=== PATIENT | male | born 1975 | race African-American/Black ===

== ENCOUNTER 2020-03-18 13:52 | Emergency (ER) | payer SELFPAY ==
[~2020-03-18] VITALS: Ht 170 cm; Wt 79.4 kg
[2020-03-18] MEDS ORDERED: NS IV 1000 ML 1,000 ML IV SCH (14:30)
[2020-03-18 14:33] LABS: BASOPHILS # (AUTO) 0.1 10^3/uL (0.0-0.1); BASOPHILS % (AUTO) 1 % (0-10); EOSINOPHILS # (AUTO) 0.1 10^3/uL (0.0-0.3); EOSINOPHILS % (AUTO) 3 % (0-10); HEMATOCRIT 38 % (40-54); HEMOGLOBIN 13.1 G/DL (13.3-17.7); LYMPHOCYTES # (AUTO) 1.4 X 10^3 (1.0-4.0); LYMPHOCYTES % (AUTO) 41 % (12-44); MEAN CORPUSCULAR HEMOGLOBIN 34 PG (25-34); MEAN CORPUSCULAR HGB CONC 35 G/DL (32-36); MEAN CORPUSCULAR VOLUME 98 FL (80-99); MEAN PLATELET VOLUME 9.4 FL (7.4-10.4); MONOCYTES # (AUTO) 0.4 X 10^3 (0.0-1.0); MONOCYTES % (AUTO) 11 % (0-12); NEUTROPHILS # (AUTO) 1.6 X 10^3 (1.8-7.8); NEUTROPHILS % (AUTO) 44 % (42-75); PLATELET COUNT 184 10^3/uL (130-400); RED CELL DISTRIBUTION WIDTH 13.2 % (10.0-14.5); WHITE BLOOD COUNT 3.5 10^3/uL (4.3-11.0)
[2020-03-18 14:36] LABS: ALBUMIN 3.5 GM/DL (3.2-4.5)
[2020-03-18 14:37] LABS: CHLORIDE 110 MMOL/L (98-107); POTASSIUM 3.7 MMOL/L (3.6-5.0); SODIUM 143 MMOL/L (135-145)
[2020-03-18 14:38] LABS: CALCIUM 8.1 MG/DL (8.5-10.1)
[2020-03-18 14:39] LABS: GLUCOSE 97 MG/DL (70-105); TOTAL PROTEIN 6.9 GM/DL (6.4-8.2)
[2020-03-18 14:40] LABS: CARBON DIOXIDE 23 MMOL/L (21-32)
[2020-03-18 14:41] LABS: BILIRUBIN,TOTAL 0.4 MG/DL (0.1-1.0)
--- NOTE | 2020-03-18 14:41 | ED General ---
General Chief Complaint: Exposure Stated Complaint: HEAT EXHAUSTION Nursing Triage Note: PT REPORTS CALLING EMS FOR HIM AND HIS FRIEND. HIS FRIEND BEGAN TO SEE MULTIPLE THINGS SO HE CALLED EMS. PT REPORTS THEY ARE VERY HOT AND HAVE BEEN WALKING FROM [place] TO FOR WORK. THEY HAVE BEEN WALKING FOR SEVERAL DAYS. Nursing Sepsis Screen: No Definite Risk Source of Information: Patient Exam Limitations: No Limitations History of Present Illness Date Seen by Provider: Mar 18, 2020 Time Seen by Provider: 14:39 Initial Comments To ER by EMS with reports of heat-related illness while walking he got dizzy and had general malaise. The gentleman with whom he is traveling by foot to [place] also wants to be checked out for heat related illness. Theyd both like a sandwich tray. Timing/Duration: 1-2 Days Severity: Moderate Associated Systoms: Denies Symptoms Allergies and Home Medications Allergies Coded Allergies: No Known Drug Allergies (Unverified , 03/18/20) Patient Home Medication List Home Medication List Reviewed: Yes Review of Systems Review of Systems Constitutional: see HPI EENTM: see HPI Respiratory: no symptoms reported Cardiovascular: no symptoms reported Genitourinary: no symptoms reported Musculoskeletal: no symptoms reported Skin: no symptoms reported Psychiatric/Neurological: No Symptoms Reported Hematologic/Lymphatic: No Symptoms Reported Past Cupjofv-Nvlmdn-Gywqqy Hx Patient Social History Alcohol Use: Regular Use Recreational Drug Use: No Smoking Status: Never a Smoker Recent Foreign Travel: No Contact w/Someone Who Travel: No Recent Infectious Disease Expo: No Recent Hopitalizations: No Seasonal Allergies Seasonal Allergies: No Past Medical History Surgeries: Yes (TBI WITH UNKNOWN SX) Respiratory: No Cardiac: No Neurological: Yes Traumatic Brain Injury Genitourinary: No Gastrointestinal: No Musculoskeletal: No Endocrine: No HEENT: No Cancer: No Psychosocial: No Blood Disorders: No Physical Exam Vital Signs Vital Signs - First Documented 03/18/20 13:52 Temp 36.8 Pulse 67 Resp 16 B/P (MAP) 108/78 (88) Pulse Ox 97 Capillary Refill : Less Than 3 Seconds Height, Weight, BMI Height: '" Weight: lbs. oz. kg; 27.00 BMI Method: General Appearance: No Apparent Distress, WD/WN Eyes: Bilateral Eye Normal Inspection, Bilateral Eye PERRL, Bilateral Eye EOMI Neck: Full Range of Motion, Normal Inspection Respiratory: Lungs Clear, Normal Breath Sounds, No Accessory Muscle Use, No Respiratory Distress Cardiovascular: Regular Rate, Rhythm Gastrointestinal: Non Tender, Soft Extremity: Normal Capillary Refill, Normal Inspection Neurologic/Psychiatric: Alert, Oriented x3 Skin: Normal Color, Warm/Dry Progress/Results/Core Measures Suspected Sepsis Recent Fever Within 48 Hours: No Infection Criteria Present: None New/Unexplained Altered Menta: No Sepsis Screen: No Definite Risk SIRS Temperature: Pulse: 67 Respiratory Rate: 16 Laboratory Tests 03/18/20 14:00: White Blood Count 3.5L Blood Pressure 108 /78 Mean: 88 Laboratory Tests 03/18/20 14:00: Creatinine 0.78, Platelet Count 184, Total Bilirubin 0.4 Results/Orders Lab Results Laboratory Tests Test 03/18/20 14:00 Range/Units White Blood Count 3.5 L 4.3-11.0 10^3/uL Red Blood Count 3.88 L 4.35-5.85 10^6/uL Hemoglobin 13.1 L 13.3-17.7 G/DL Hematocrit 38 L 40-54 % Mean Corpuscular Volume 98 80-99 FL Mean Corpuscular Hemoglobin 34 25-34 PG Mean Corpuscular Hemoglobin Concent 35 32-36 G/DL Red Cell Distribution Width 13.2 10.0-14.5 % Platelet Count 184 130-400 10^3/uL Mean Platelet Volume 9.4 7.4-10.4 FL Neutrophils (%) (Auto) 44 42-75 % Lymphocytes (%) (Auto) 41 12-44 % Monocytes (%) (Auto) 11 0-12 % Eosinophils (%) (Auto) 3 0-10 % Basophils (%) (Auto) 1 0-10 % Neutrophils # (Auto) 1.6 L 1.8-7.8 X 10^3 Lymphocytes # (Auto) 1.4 1.0-4.0 X 10^3 Monocytes # (Auto) 0.4 0.0-1.0 X 10^3 Eosinophils # (Auto) 0.1 0.0-0.3 10^3/uL Basophils # (Auto) 0.1 0.0-0.1 10^3/uL Sodium Level 143 135-145 MMOL/L Potassium Level 3.7 3.6-5.0 MMOL/L Chloride Level 110 H 98-107 MMOL/L Carbon Dioxide Level 23 21-32 MMOL/L Anion Gap 10 5-14 MMOL/L Blood Urea Nitrogen 5 L 7-18 MG/DL Creatinine 0.78 0.60-1.30 MG/DL Estimat Glomerular Filtration Rate > 60 BUN/Creatinine Ratio 6 Glucose Level 97 70-105 MG/DL Calcium Level 8.1 L 8.5-10.1 MG/DL Corrected Calcium 8.5 8.5-10.1 MG/DL Total Bilirubin 0.4 0.1-1.0 MG/DL Aspartate Amino Transf (AST/SGOT) 105 H 5-34 U/L Alanine Aminotransferase (ALT/SGPT) 97 H 0-55 U/L Alkaline Phosphatase 104 40-136 U/L Total Protein 6.9 6.4-8.2 GM/DL Albumin 3.5 3.2-4.5 GM/DL Serum Alcohol 316 *H <10 MG/DL My Orders Orders - MATT CIFUENTES APRN Cbc With Automated Diff (03/18/20 14:27) Comprehensive Metabolic Panel (03/18/20 14:27) Alcohol (03/18/20 14:27) Ua Culture If Indicated (03/18/20 14:27) Drug Screen Stat (Urine) (03/18/20 14:27) Ns Iv 1000 Ml (Sodium Chloride 0.9%) (03/18/20 14:30) General/Regular (03/18/20 Lunch) Vital Signs/I&O 03/18/20 13:52 Temp 36.8 Pulse 67 Resp 16 B/P (MAP) 108/78 (88) Pulse Ox 97 Capillary Refill : Less Than 3 Seconds Blood Pressure Mean: 88 Departure Impression Primary Impression: Heat exhaustion Additional Impression: Alcohol abuse Disposition: 01 HOME, SELF-CARE Condition: Stable Departure-Patient Inst. Decision time for Depature: 14:41 Patient Instructions: Heat Exhaustion and Heat Stroke (DC) MATT CIFUENTES APRN Mar 18, 2020 14:41
[2020-03-18 14:42] LABS: ALKALINE PHOSPHATASE 104 U/L (40-136)
[2020-03-18 14:43] LABS: CREATININE SERUM 0.78 MG/DL (0.60-1.30); GFR ESTIMATED > 60
[2020-03-18 14:44] LABS: BUN/CREATININE RATIO 6
[2020-03-18 14:46] LABS: ALANINE AMINOTRANSFERASE 97 U/L (0-55)
--- NOTE | 2020-03-18 14:54 | NUR ---
FOOD TRAY ORDERED.
[2020-03-18 15:31] VITALS: BP 108/78
--- NOTE | 2020-03-18 15:31 | NUR ---
FOOD TRAY ORDERED
--- NOTE | 2020-03-18 15:31 | NUR ---
ATE 100% OF FOOD TRAY
== END 2020-03-18 15:37 | disposition home or self-care (01) ==
LOC: ER 13:54
DX: T67.5XXA Heat exhaustion, unspecified, initial encounter (principal); F10.10 Alcohol abuse, uncomplicated; Z87.820 Personal history of traumatic brain injury; X30.XXXA Exposure to excessive natural heat, initial encounter
CPT/HCPCS: 80053; 85025; 99283; G0480; 36415; 80320; 96360